=== PATIENT | female | born 1980 | race Caucasian/White ===

== ENCOUNTER 2022-09-22 05:28 | Inpatient (IN) ==
[2022-09-15 16:15] LABS: Basophils # 0.1 10*3/uL (0.0-0.2); Basophils % 0.6 % (0.0-0.8); Eosinophils # 0.2 10*3/uL (0.0-0.87); Eosinophils % 1.8 % (0.00-10.9); Hematocrit 41.4 VOL% (35.7-47.0); Hemoglobin 13.4 GM/DL (12.0-16.0); Immature Granulocytes % 0.3 %; Immature Granulocytes Absolute 0.03 #; Lymphocytes # 2.3 10*3/uL (1.4-4.0); Lymphocytes % 25.5 % (21.3-54.2); Mean Corpuscular HGB Conc 32.4 GM/DL (32-36); Mean Corpuscular Volume 87.9 FL (87-102); Mean Platelet Volume 10.2 FL (9.6-12.0); Monocytes # 0.5 10*3/uL (0.11-0.8); Monocytes % 5.8 % (1.7-12.7); Platelet Count 313 T/CUMM (130-400); Red Blood Count 4.71 MC/CUMM (3.8-5.5); White Blood Count 8.9 T/CUMM (4-12)
[2022-09-15 16:16] LABS: Bilirubin,Urine Negative (Negative); Blood, Urine Negative (Negative); Glucose,Urine (UA) Negative (Negative); Ketones,Urine Negative (Negative); Mucus,Urine Occasional /LPF (Occasional); Nitrite,Urine Negative (Negative); Protein,Urine Negative (Negative); RBC,Urine <1 /HPF (0-4); Squamous Epithelial Cell,Urine Occasional /HPF (0-10); Urine Appearance Slightly Hazy (Clear); Urine Color Yellow (Yellow); Urine Urobilinogen < 2.0 eU/dL (<2.0)
[2022-09-15 16:33] LABS: Calcium 9.2 MG/DL (8.5-10.1); Osmolality,Calculated 281.1 MOS/KG (273-304); Potassium 3.9 MMOL/L (3.5-5.1)
[2022-09-15 16:51] LABS: PT Patient Result 10.8 SECS (10.1-12.1); Partial Thromboplastin Time 27.9 SECS (23.7-32.9)
[2022-09-22] MEDS ORDERED: ONDANSETRON 4 MG/2 ML VIAL ONE (06:16)
[2022-09-22] MEDS ORDERED: fentaNYL 100 MCG/2 ML VIAL ONE ×3 (06:16→08:19)
[2022-09-22] MEDS ORDERED: LIDOCAINE 2% 5 ML VIAL ONE (06:16)
[2022-09-22] MEDS ORDERED: ROCURONIUM 50 MG/5 ML VIAL IV ONE ×2 (06:16→07:10)
[2022-09-22] MEDS ORDERED: SEVOFLURANE 1 UNIT/15 MINUTE INH ONE (06:16)
[2022-09-22] MEDS ORDERED: SUCCINYLCHOLINE 200 MG/10 ML VIAL ONE (06:17)
[2022-09-22] MEDS ORDERED: MIDAZOLAM 2 MG/2 ML VIAL ONE (06:17)
[2022-09-22] MEDS ORDERED: propofoL 200 MG/20 ML VIAL IV ONE (06:17)
[2022-09-22] MEDS ORDERED: KETAMINE 500 MG/10 ML VIAL ONE (06:17)
[2022-09-22] MEDS ORDERED: VASOPRESSIN 20 UNITS/ML VIAL ONE (06:21)
[2022-09-22] MEDS: LACTATED RINGERS 1,000 ML IV SCH ×3 (06:40→22:12)
[2022-09-22] MEDS ORDERED: GLYCOPYRROLATE 0.4 MG/2 ML VIAL ONE (07:53)
[2022-09-22] MEDS ORDERED: SUGAMMADEX 200 MG/2 ML VIAL IV ONE (08:23)
[2022-09-22] MEDS ORDERED: LACTATED RINGERS 1,000 ML IV ONE (08:33)
[2022-09-22] MEDS ORDERED: MEPERIDINE 25 MG/1 ML VIAL ONE (08:46)
[2022-09-22] MEDS: MEPERIDINE 25 MG/1 ML VIAL IV PRN ×2 (08:46→09:09)
[2022-09-22] MEDS ORDERED: BENZOCAINE/MENTHOL LOZENGE 18/BOX PO PRN (08:52)
[2022-09-22] MEDS ORDERED: ONDANSETRON 4 MG/2 ML VIAL IV PRN (08:52)
[2022-09-22] MEDS ORDERED: DOCUSATE SODIUM 100 MG CAPSULE PO PRN (08:52)
[2022-09-22] MEDS ORDERED: MAGNESIUM HYDROXIDE SUSP 30 ML UDCUP PO PRN (08:52)
[2022-09-22] MEDS ORDERED: ACETAMINOPHEN 325 MG TABLET PO PRN (08:52)
[2022-09-22] MEDS ORDERED: IBUPROFEN 800 MG TABLET PO PRN (08:52)
[2022-09-22] MEDS ORDERED: BISACODYL 10 MG SUPP RECTAL PRN (08:52)
[2022-09-22 09:04] LABS: Bacteria,Urine Occasional /HPF (Few); Bilirubin,Urine Negative (Negative); Blood, Urine Negative (Negative); Glucose,Urine (UA) Negative (Negative); Ketones,Urine 20 mg/dL (Negative); Mucus,Urine Few /LPF (Occasional); Nitrite,Urine Negative (Negative); Protein,Urine Negative (Negative); RBC,Urine 1 /HPF (0-4); Squamous Epithelial Cell,Urine Occasional /HPF (0-10); Urine Appearance CLEAR (Clear); Urine Color Yellow (Yellow); Urine Specific Gravity 1.018 (1.001-1.035); Urine Urobilinogen < 2.0 eU/dL (<2.0)
[2022-09-22] MEDS: oxyCODONE/ACETAMINOPHEN 5-325 MG TABLET PO PRN ×3 (10:45→20:55)
[2022-09-22] MEDS ORDERED: KETOROLAC 30 MG/1 ML VIAL IV PRN (22:44)
[2022-09-23] MEDS: oxyCODONE/ACETAMINOPHEN 5-325 MG TABLET PO PRN ×2 (04:08→09:59)
[2022-09-23 05:22] LABS: Basophils % 0.3 % (0.0-0.8); Eosinophils # 0.1 10*3/uL (0.0-0.87); Eosinophils % 0.8 % (0.00-10.9); Hematocrit 37.4 VOL% (35.7-47.0); Hemoglobin 11.8 GM/DL (12.0-16.0); Immature Granulocytes % 0.2 %; Immature Granulocytes Absolute 0.02 #; Lymphocytes # 1.8 10*3/uL (1.4-4.0); Lymphocytes % 19.3 % (21.3-54.2); Mean Corpuscular HGB Conc 31.6 GM/DL (32-36); Mean Corpuscular Volume 88.8 FL (87-102); Mean Platelet Volume 9.8 FL (9.6-12.0); Monocytes # 0.8 10*3/uL (0.11-0.8); Monocytes % 8.7 % (1.7-12.7); Neutrophils % 70.7 % (38.7-73.9); Platelet Count 262 T/CUMM (130-400); Red Blood Count 4.21 MC/CUMM (3.8-5.5); Red Cell Distribution Width 12.9 % (9.3-17.3); White Blood Count 9.1 T/CUMM (4-12)
[2022-09-23] MEDS ORDERED: LEVOTHYROXINE 88 MCG TABLET PO SCH (06:30)
[2022-09-23] MEDS ORDERED: metFORMIN 500 MG TABLET PO SCH (08:00)
[2022-09-23 08:33] VITALS: BP 114/63
[2022-09-23] MEDS ORDERED: ESCITALOPRAM 10 MG TABLET PO SCH (09:00)
[2022-09-23] MEDS ORDERED: OMEPRAZOLE ODT 20 MG TABLET PO SCH (09:00)
[2022-09-23] MEDS: LACTATED RINGERS 1,000 ML IV SCH (09:56)
== END 2022-09-23 10:55 | disposition home or self-care (01) | DRG 743 ==
LOC: N.OR 05:28 → N.SDSINP 05:28 → N.OB 09:56
PROVIDERS: ADMIT Specialist; ATTEND Specialist